=== PATIENT | female | born 1965 | race Two or more races ===

== ENCOUNTER → 2024-06-24 | Outpatient (CLI) | payer MEDICAID, SELFPAY ==
--- NOTE | 2024-06-24 15:15 | XR_ITS ---
Examination: Abdomen sonogram, complete Date and time of exam: June 24, 2024 1530 hours INDICATIONS: Elevated liver function tests on laboratory examination performed several weeks ago. Technique: Multiple real-time grayscale transabdominal sonographic images of the abdomen have been obtained. Findings: Normal gallbladder Normal common bile duct 0.5 cm Pancreatic head 2.8 cm Aorta not enlarged Liver 13.6 cm fatty liver no focal liver lesions Normal hepatopedal portal venous flow Patent IVC Right kidney 11.0 x 5.0 x 4.8 cm in the cortex 1.5 cm Left kidney 11.0 x 6.1 x 6.1 cm cortex 2.6 cm Mild renal parenchymal scar formation Spleen 10.1 cm IMPRESSION: Normal gallbladder Fatty liver
== END | disposition home or self-care (01) ==
LOC: CDIM 15:00
PROVIDERS: PCP Nurse Practitioner Family; Referring Provider Nurse Practitioner Family; Visit Provider Nurse Practitioner Family
DX: K76.0 Fatty (change of) liver, not elsewhere classified (principal)
CPT/HCPCS: 76700